=== PATIENT | female | born 1945 | race Caucasian/White ===

== ENCOUNTER 2018-10-21 18:55 | Emergency (ER) | payer OTHER ==
[~2018-10-21] VITALS: Ht 167.6 cm; Wt 88.0 kg
[~2018-10-21 18:55] MED LIST: AVALIDE 150-12.1 TA1; AVALIDE 150-12.1 TA1 PO; AVALIDE 150/12.1 TAB PO; AVALIDE 300-12.1 TAB PO; CRESTOR20 MG; KETO10TA2 PO; NEURONTIN300 MG; NEURONTIN300 MG PO; NUCYNTA50 MG; ORPH100T PO; PERCOCET 5/3251 TAB PO; TRAMADOL HCL-AP1 TAB PO; ZANAFLEX4 M1; ZOCOR40 MG PO; [UNRECOGNIZED DRUG - OTHER]
== END 2018-10-22 00:47 | disposition home or self-care (01) ==
LOC: ER 18:55
DX: S93.492A Sprain of other ligament of left ankle, initial encounter (principal); X50.3XXA Overexertion from repetitive movements, initial encounter; Y93.89 Activity, other specified; Y92.098 Other place in other non-institutional residence as the place of occurrence of the external cause; Y99.8 Other external cause status

== ENCOUNTER 2021-11-27 22:41 | Inpatient (IN) | payer OTHER ==
[~2021-11-27] VITALS: Ht 160 cm; Wt 70.3 kg
[2021-11-29] MEDS ORDERED: ROSUVASTATIN CA20 MG (08:06)
[2021-11-29] MEDS ORDERED: ANASTROZOLE1 MG (08:07)
[2021-11-29] MEDS ORDERED: AMLODIPINE BESYL5 MG (08:07)
[2021-11-29] MEDS ORDERED: TUMS ULTRA400 MG (08:07)
[2021-11-29] MEDS ORDERED: VITAMIN D3250 MCG (08:07)
[2021-12-01] MEDS ORDERED: XARELTO20 MG PO (14:06)
== END 2021-12-01 16:14 | disposition home or self-care (01) | DRG 309 ==
LOC: ER 22:41 → SEC-K 11-28 08:59 → SURG 11-28 22:58
PROVIDERS: ADMIT Internal Medicine; ATTEND Internal Medicine
PROC: B24BZZZ Ultrasonography of Heart with Aorta (ICD-10-PCS; 2021-11-28)
PROC: 4A12X4Z Monitoring of Cardiac Electrical Activity, External Approach (ICD-10-PCS; principal; 2021-11-29)
PROC: 4A02XM4 Measurement of Cardiac Total Activity, External Approach (ICD-10-PCS; 2021-11-30)
DX: I48.91 Unspecified atrial fibrillation (principal); I24.8 Other forms of acute ischemic heart disease; I10 Essential (primary) hypertension; E78.49 Other hyperlipidemia; Z20.822 Contact with and (suspected) exposure to COVID-19; C50.911 Malignant neoplasm of unspecified site of right female breast

== ENCOUNTER 2022-01-07 11:35 | Inpatient (IN) | payer OTHER ==
[~2022-01-07] VITALS: Ht 160 cm; Wt 92.1 kg
[~2022-01-07 11:35] MED LIST changes: +AMLODIPINE BESYL5 MG; +ANASTROZOLE1 MG; +CARISOPRODOL350 MG; +IRBESARTAN-HCT1 EACH; +PERCOCET 5/3251 TAB; +ROSUVASTATIN CA20 MG; +TUMS ULTRA400 MG; +VITAMIN D3250 MCG; +XARELTO20 MG PO
[2022-01-07] MEDS ORDERED: ANASTROZOLE1 MG PO (12:04)
[2022-01-07] MEDS ORDERED: TOPROL XL25 M1 (12:04)
[2022-01-07] MEDS ORDERED: XARELTO20 MG (12:04)
[2022-01-07] MEDS ORDERED: CRESTOR20 MG PO ×2 (12:04→12:05)
[2022-01-07] MEDS ORDERED: TOPROL XL50 M1 (12:05)
[2022-01-08] MEDS ORDERED: LOSARTAN POTASS25 MG (10:44)
[2022-01-08] MEDS ORDERED: TUMS ULTRA400 MG (10:44)
[2022-01-08] MEDS ORDERED: IRBESARTAN-HCT1 EACH (10:44)
[2022-01-08] MEDS ORDERED: VITAMIN D3250 MCG (10:44)
[2022-01-08] MEDS ORDERED: AMLODIPINE BESYL5 MG (10:45)
== END 2022-01-11 14:05 | disposition home or self-care (01) | DRG 481 ==
LOC: ER 11:35 → SURH 22:25
PROVIDERS: ADMIT Orthopaedic Surgery; ATTEND Orthopaedic Surgery
PROC: 0MBV0ZZ Excision of Right Lower Extremity Bursa and Ligament, Open Approach (ICD-10-PCS; 2022-01-08)
PROC: 0KQN0ZZ Repair Right Hip Muscle, Open Approach (ICD-10-PCS; 2022-01-08)
PROC: 0QS604Z Reposition Right Upper Femur with Internal Fixation Device, Open Approach (ICD-10-PCS; principal; 2022-01-08 11:00)
DX: S72.111A Displaced fracture of greater trochanter of right femur, initial encounter for closed fracture (principal); D62 Acute posthemorrhagic anemia; Z20.822 Contact with and (suspected) exposure to COVID-19; I10 Essential (primary) hypertension; I48.0 Paroxysmal atrial fibrillation

== ENCOUNTER 2022-02-08 10:27 | Emergency (ER) | payer OTHER ==
[~2022-02-08] VITALS: Ht 160 cm; Wt 81.6 kg
[~2022-02-08 10:27] MED LIST changes: +ANASTROZOLE1 MG PO; +CRESTOR20 MG PO; +LOSARTAN POTASS25 MG; +TOPROL XL25 M1; +TOPROL XL50 M1; +XARELTO20 MG
[2022-02-08] MEDS ORDERED: ROSUVASTATIN CA20 MG PO (10:57)
[2022-02-08] MEDS ORDERED: ANASTROZOLE1 MG PO (10:57)
[2022-02-08] MEDS ORDERED: XARELTO20 MG PO (10:58)
[2022-02-08] MEDS ORDERED: COZAAR25 MG PO (10:58)
[2022-02-08] MEDS ORDERED: TOPROL XL50 M1 PO (10:58)
[2022-02-08] MEDS ORDERED: CELEBREX200MG PO (11:43)
== END 2022-02-08 11:50 | disposition home or self-care (01) ==
LOC: ER 10:27
DX: M25.561 Pain in right knee (principal)

== ENCOUNTER 2022-03-07 13:29 | Outpatient (CLI) | payer OTHER ==
[~2022-03-07 13:29] MED LIST changes: +CELEBREX200MG PO; +COZAAR25 MG PO; +ROSUVASTATIN CA20 MG PO; +TOPROL XL50 M1 PO
== END 2022-03-07 13:35 | disposition home or self-care (01) ==
LOC: RAD 13:29
PROVIDERS: ATTEND Orthopaedic Surgery
DX: S72.114D Nondisplaced fracture of greater trochanter of right femur, subsequent encounter for closed fracture with routine healing (principal); S72.144D Nondisplaced intertrochanteric fracture of right femur, subsequent encounter for closed fracture with routine healing

== ENCOUNTER 2022-06-18 11:01 | Outpatient (CLI) | payer OTHER | END 2022-06-18 11:21 | disposition home or self-care (01) | LOC: LAB 11:01 | DX: E55.9 Vitamin D deficiency, unspecified (principal); M85.9 Disorder of bone density and structure, unspecified; E56.1 Deficiency of vitamin K; E21.3 Hyperparathyroidism, unspecified; E88.9 Metabolic disorder, unspecified; M81.8 Other osteoporosis without current pathological fracture ==

== ENCOUNTER → 2023-04-23 | Outpatient (CLI) | payer OTHER | END | disposition home or self-care (01) | LOC: RAD 08:56 | PROVIDERS: ATTEND Orthopaedic Surgery | DX: M25.561 Pain in right knee (principal) ==

== ENCOUNTER 2023-12-27 14:23 | Emergency (ER) | payer OTHER ==
[~2023-12-27] VITALS: Ht 157.5 cm; Wt 88.0 kg
[2023-12-27 17:05] LABS: HEMATOCRIT 40.7 % (36.0-45.00); HEMOGLOBIN 13.7 g/dL (12.0-15.00); MEAN CELL VOLUME 88.2 fL (80.00-100.00); MEAN CORPUSCULAR HEMOGLOBIN 29.6 pg (27.00-32.0); MEAN CORPUSCULAR HGB CONC 33.6 g/dl (32.0-36.0); PLATELET COUNT 336 K/uL (150-450); RED BLOOD COUNT 4.61 M/uL (4.00-6.00); RED CELL DISTRIBUTION WIDTH 12.5 % (11.5-14.5)
[2023-12-27 17:24] LABS: ALBUMIN 3.9 gm/dL (3.4-5.0); BILIRUBIN TOTAL 0.49 mg/dL (0.3-1.2); CALCIUM 9.1 mg/dL (8.5-10.1); CREATININE SERUM 1.07 mg/dL (0.55-1.02); GFR 49.86; POTASSIUM 4.2 mEq/L (3.5-5.1); TOTAL PROTEIN 7.9 gm/dL (6.4-8.2)
[2023-12-27 17:31] LABS: INR 0.96; PROTHROMBIN TIME 10.1 SECONDS (9.0-11.5)
[2023-12-27 17:33] LABS: D DIMER 0.71 MG/L; PARTIAL THROMBOPLASTIN TIME 28.5 SECONDS (22.0-34.0)
== END 2023-12-27 20:40 | disposition home or self-care (01) ==
LOC: ER 14:24
PROVIDERS: Emergency Medicine
DX: R00.2 Palpitations (principal); I48.91 Unspecified atrial fibrillation; Z88.8 Allergy status to other drugs, medicaments and biological substances

== ENCOUNTER 2025-05-03 13:17 | Emergency (ER) | payer OTHER ==
[~2025-05-03] VITALS: Ht 162.6 cm; Wt 92.1 kg
[2025-05-03] MEDS ORDERED: DEXAMETHASONE SODIUM PHOSPHATE 4 MG/ML VIAL IM STA (17:14)
[2025-05-03] MEDS ORDERED: IBU800 MG PO (19:23)
== END 2025-05-03 20:59 | disposition home or self-care (01) ==
LOC: ER 13:17
DX: G89.11 Acute pain due to trauma (principal); M79.674 Pain in right toe(s); M19.90 Unspecified osteoarthritis, unspecified site; I10 Essential (primary) hypertension; Z88.8 Allergy status to other drugs, medicaments and biological substances

== ENCOUNTER 2025-07-03 10:39 | Emergency (ER) | payer OTHER ==
[~2025-07-03] VITALS: Ht 165.1 cm; Wt 93.4 kg
[~2025-07-03 10:39] MED LIST changes: +IBU800 MG PO
[2025-07-03] MEDS ORDERED: CLONIDINE HCL 0.1 MG TABLET PO ONE (12:00)
== END 2025-07-03 13:38 | disposition home or self-care (01) ==
LOC: ER 10:39
DX: I10 Essential (primary) hypertension (principal); Z88.8 Allergy status to other drugs, medicaments and biological substances